=== PATIENT | female | born 1995 | race Caucasian/White ===

== ENCOUNTER 2020-10-27 08:05 | Day surgery (SDC) | payer OTHER ==
[2020-10-27] MEDS ORDERED: LACTATED RINGERS 1,000 ML IV ONE ×2 (08:10→10:06)
[2020-10-27] MEDS ORDERED: KETOROLAC 30 MG/ML VIAL ONE (08:13)
[2020-10-27] MEDS ORDERED: PROPOFOL 200 MG/20 ML VIAL IVP ONE (08:13)
[2020-10-27] MEDS ORDERED: DEXAMETHASONE 4 MG/ML VIAL ONE (08:13)
[2020-10-27] MEDS ORDERED: LIDOCAINE-MPF 2% 5 ML VIAL ONE (08:13)
[2020-10-27] MEDS ORDERED: ONDANSETRON 4 MG/2 ML VIAL ONE (08:13)
[2020-10-27] MEDS ORDERED: ceFAZolin 2 GM/50 ML 2 GM/50 ML BAG IV ONE (08:25)
[2020-10-27 08:57] LABS: HCG UR QUAL NEGATIVE
[2020-10-27] MEDS ORDERED: HYDROmorphone 0.5 MG/0.5 ML SYRINGE IVP PRN (08:57)
[2020-10-27] MEDS ORDERED: MORPHINE 2 MG/ML CARPUJECT IVP PRN (08:57)
[2020-10-27] MEDS ORDERED: METOCLOPRAMIDE 10 MG/2 ML VIAL IVP PRN (08:57)
[2020-10-27] MEDS ORDERED: NALOXONE 0.4 MG/ML VIAL IVP PRN (08:57)
[2020-10-27] MEDS ORDERED: ONDANSETRON 4 MG/2 ML VIAL IVP PRN ×2 (08:57→09:58)
[2020-10-27] MEDS ORDERED: ATROPINE ABBOJECT 1 MG/10 ML SYRINGE IVP PRN (08:57)
[2020-10-27] MEDS ORDERED: fentaNYL 100 MCG/2 ML VIAL IVP PRN (08:57)
[2020-10-27] MEDS ORDERED: ePHEDrine 50 MG/ML VIAL IVP PRN (08:57)
--- NOTE | 2020-10-27 08:57 | ANESTHESIA ---
Pre-Anesthesia VS, & Labs - Diagnosis right wrist ganglion cyst - Procedure Ganglion cystectomy Vital Signs: Temp Pulse Resp BP Pulse Ox 36.5 C 78 12 116/61 99 10/27/20 08:11 10/27/20 08:11 10/27/20 08:11 10/27/20 08:11 10/27/20 08:11 Height: 5 ft 6 in Weight (kg): 77.11 kg Body Mass Index: 27.4 BMI Classification: Overweight - NPO >8 hours - Is Patient ?: No - Lab Results Lab results reviewed: Yes Home Medications and Allergies Home Medications: Ambulatory Orders No Known Home Medications 10/22/20 No Known Home Medications 10/22/20 Allergies/Adverse Reactions: Allergies Allergy/AdvReac Type Severity Reaction Status Date / Time No Known Drug Allergies Allergy Verified 10/22/20 12:02 Anes History & Medical History - Anesthetic History Anesthesia Complications: reports: No previous complications Family history of Anesthesia Complications: Denies Family history of Malignant Hyperthermia: Denies - Medical History Cardiovascular: reports: None Pulmonary: reports: None Gastrointestinal: reports: None Urinary: reports: None Musculoskeletal: reports: Other Endocrine/Autoimmune: reports: None Skin: reports: None - Surgical History Orthopedic: ACL reconstruction, Arthroscopic surgery Exam General: Alert, Oriented x3, Cooperative, No acute distress Dental: WNL Mouth Openin Fingerbreadth Neck Mobility: Normal Mallampati classification: I Respiratory: Lungs clear, Normal breath sounds, No respiratory distress, No accessory muscle use Cardiovascular: Regular rate, Normal S1, Normal S2, No murmurs Plan Anesthesia Type: General Consent for Procedure(s) Verified and Reviewed: Yes Code Status: Attempt Resuscitation ASA classification: 1-Healthy patient Is this case an emergency?: No
[2020-10-27] MEDS ORDERED: LACTATED RINGERS 1,000 ML IV SCH (09:00)
[2020-10-27] MEDS ORDERED: BUPIVACAINE 0.25% PF 10 ML VIAL ONE (09:04)
[2020-10-27] MEDS ORDERED: fentaNYL 100 MCG/2 ML VIAL ONE (09:05)
[2020-10-27] MEDS ORDERED: MIDAZOLAM 2 MG/2 ML VIAL ONE (09:05)
[2020-10-27] MEDS ORDERED: BUPIVACAINE 0.25% PF 30 ML VIAL SUBQ ONE ×2 (09:29→09:50)
[2020-10-27] MEDS ORDERED: oxyCODONE 5 MG TABLET PO PRN (09:58)
--- NOTE | 2020-10-27 10:03 | OPERATIVE REPORT ---
Operative Report - Other Other Information/Narrative: Date of Surgery: 27 October 2020 Pre-Op Diagnosis: Right dorsal wrist ganglion Procedure: Right dorsal wrist ganglion excision Postop Diagnosis: Same Primary Surgeon: Henok Dent Secondary Surgeon: None Complications: None Tourniquet Time: 24 minutes EBL: 5 cc Postoperative Protocol: Leave splint on until follow-up. Suture tails cut at 2 weeks. Range of motion from 2-6 weeks. Strengthening may begin at 6 weeks. Indication For Surgery: 25-year-old female with a dorsal wrist mass that did not respond to conservative measures and was symptomatic and limiting her daily life. We discussed treatment options to include watchful waiting aspiration and surgical excision. She desired a more permanent solution with the lowest risk of recurrence and surgery was selected. The risks, benefits, and alternatives were discussed. Risks include pain, bleeding, infection, damage to nearby structures, numbness, lack of symptom relief, implant complications, nonunion, need for further surgery, DVT, PE, stroke, and . Written consent was obtained. Procedure in Detail: The patient was met in the pre-operative hold area on the day of the procedure. The operative extremity was signed and questions were answered. The patient was brought to the operating room and a general anesthetic was administered. Supine position was used and bony prominences were padded. Standard prepping and draping was performed. A time out confirmed patient identification, laterality, procedure, allergies, antibiotics, and images. An Esmarch was used to exsanguinate the limb and the tourniquet was elevated to 200 mmHg. The wrist was flexed to accentuate the mass. A 2 cm longitudinal incision was made directly overlying the mass. Electrocautery was used to obtain hemostasis. Scissor dissection was used to separate the mass from the surrounding extensor tendons and fascia. Traction was pulled on the mass with an Allis and I carefully dissected around it tracing the stalk back to the wrist capsule. The stalk was excised with a 5 mm square section of capsule. The mass was passed off to the back table. It was popped and filled with typical ganglion fluid. I carefully inspected the wound to ensure that all of the cyst had been fully excised. The wound was then irrigated copiously with sterile saline. A layered closure was performed with approximation of the extensor retinaculum and the underlying dermis. A running Monocryl was used in the skin. 5 cc of half percent Marcaine was placed near the wound. A sterile dressing was applied and a volar resting splint was applied. The patient was awakened and transferred to recovery room.
--- NOTE | 2020-10-27 10:26 | ANESTHESIA POST OP EVALUATION ---
Anesthesia Post Eval - Post Anesthesia Eval Vitals: Last Vital Signs Temp 36.5 C 10/27/20 10:05 Pulse 66 10/27/20 10:25 Resp 13 10/27/20 10:25 BP 110/66 10/27/20 10:25 Pulse Ox 99 10/27/20 10:25 CV Function Including HR & BP: positive: Stable Pain Control: positive: Satisfactory Nausea & Vomiting: positive: Negative Mental Status: positive: Baseline Respiratory Status: Airway Patent Hydration Status: Satisfactory Anesthesia Complications: positive: None
[2020-10-27 10:55] VITALS: BP 110/54
== END 2020-10-27 08:06 | disposition home or self-care (01) ==
LOC: SDS 08:05
PROVIDERS: ATTEND Orthopaedic Surgery
DX: M67.431 Ganglion, right wrist (principal); E66.3 Overweight; Z68.27 Body mass index [BMI] 27.0-27.9, adult
CPT/HCPCS: 25111; 81025; J0690; J7120; 36415

== ENCOUNTER 2023-11-15 08:20 | Outpatient (CLI) | payer OTHER ==
--- NOTE | 2023-11-15 10:39 | Ultrasound Report ---
PROCEDURE: Abdomen Limited INDICATIONS: GERD TECHNIQUE: Real-time focused scanning was performed of the abdomen, with image documentation. COMPARISONS: None. FINDINGS: Liver: Liver is normal in size. It has a coarsened echogenic pattern suggesting mild diffuse hepatic steatosis. No focal liver mass. Gallbladder: Incidental 3.5 mm gallbladder polyp. Otherwise unremarkable. Biliary ducts: Intrahepatic bile ducts are non-dilated. Extrahepatic bile duct caliber measures 1.6 mm. Normal is 6-7 mm or less in diameter, or 10 mm or less post-cholecystectomy. Pancreas: Visualized portions of the pancreas are sonographically normal. Right kidney: Normal in size and echotexture. Right kidney measures 10.7 cm long. No hydronephrosis or nephrolithiasis. No solid masses. No complex renal cystic lesions which require follow-up. IVC: Intrahepatic inferior vena cava is patent. Miscellaneous: No free abdominal fluid. IMPRESSION: Findings suggest mild diffuse hepatic steatosis. Otherwise unremarkable right upper quadrant ultrasou nd. Reviewed by: Sanjay Newell MD on 11/15/2023 10:37 AM PST Approved by: Sanjay Newell MD on 11/15/2023 10:37 AM PST Station ID: [id number]
== END 2023-11-15 08:21 | disposition home or self-care (01) ==
LOC: DI 08:20
PROVIDERS: ATTEND Internal Medicine
DX: K21.9 Gastro-esophageal reflux disease without esophagitis (principal); E66.3 Overweight